=== PATIENT | female | born 1995 | race Caucasian/White ===

== ENCOUNTER 2018-04-16 11:22 | Emergency (ER) | payer OTHER ==
[~2018-04-16] VITALS: Ht 160 cm; Wt 48.1 kg
[~2018-04-16 11:22] MED LIST: AMBIEN10 MG; AMOX1TAB5 PO; ATIVAN0.5 M1; STRATTERA25 MG; WELLBUTRIN XL300 MG
[2018-04-16] MEDS ORDERED: CIPRO500 MG PO (11:44)
== END 2018-04-16 14:32 | disposition home or self-care (01) ==
LOC: ER 11:22
DX: N75.0 Cyst of Bartholin's gland (principal)